=== PATIENT | female | born 1950 | race Caucasian/White ===

== ENCOUNTER → 2017-03-15 | Outpatient (CLI) | payer BC, OTHER ==
--- NOTE | 2017-03-15 12:16 | RAD ---
DATE: 03/15/2017 EXAM: DIGITAL SCREEN BILAT W/CAD HISTORY: Routine screening COMPARISON: None available This study was interpreted with the benefit of Computerized Aided Detection (CAD). The breast parenchyma is heterogeneously dense, which could reduce sensitivity of mammography. Breast parenchyma level C. FINDINGS: The fibroglandular tissues are heterogeneous and somewhat nodular in character. No discrete breast mass is seen. There is a coarse benign type calcification in the upper outer quadrant of the right breast. Additional small scattered microcalcifications in both breasts have a benign appearance. No suspicious microcalcifications are evident. IMPRESSION: There is no mammographic evidence of malignancy in either breast. BI-RADS CATEGORY: 2 BENIGN FINDING(S) RECOMMENDED FOLLOW-UP: 12M 12 MONTH FOLLOW-UP PQRS compliance statement: Patient information was entered into a reminder system with a target due date for the next mammogram. Mammography is a sensitive method for finding small breast cancers, but it does not detect them all and is not a substitute for careful clinical examination. A negative mammogram does not negate a clinically suspicious finding and should not result in delay in biopsying a clinically suspicious abnormality. "Our facility is accredited by the [employer] Mammography Program."
--- NOTE | 2017-03-15 14:14 | RAD ---
COMPLETE ABDOMINAL ULTRASOUND Clinical History: GALLBLADDER POLYP Comparison: None. Technique: Sonographic examination of the abdomen was performed and multiple grayscale and duplex Doppler static images were obtained. Findings: The majority of the liver is visualized and appears homogeneous. The liver measures 12.6 cm. Portal flow is hepatopetal. The common bile duct is normal in caliber, measuring 5 mm in diameter. The gallbladder wall is not thickened. There is no cholelithiasis or pericholecystic fluid. There is a 0.4 x 0.7 cm gallbladder polyp. The pancreas appears normal. Portions of the body and tail are not well visualized due to overlying bowel gas. The right kidney is normal in morphology and echotexture and measures 9.7 x 4.3 x 4.0 cm. The left kidney is normal in morphology and echotexture and measures 10.5 x 5.7 x 5.1 cm. There is no hydronephrosis. The spleen is not enlarged, measuring 8.1 cm. Visualized portions of the abdominal aorta and IVC appear normal. IMPRESSION: 0.4 x 0.7 cm gallbladder polyp. Otherwise normal abdominal ultrasound.
== END | disposition home or self-care (01) ==
LOC: US 10:36
PROVIDERS: ATTEND Surgery
DX: Z12.31 Encounter for screening mammogram for malignant neoplasm of breast (principal); K82.4 Cholesterolosis of gallbladder
CPT/HCPCS: 76700; G0202; 77067